=== PATIENT | male | born 1960 | race Caucasian/White ===

== ENCOUNTER → 2019-07-03 | Outpatient (CLI) | payer BC ==
--- NOTE | 2019-07-04 07:17 | CT ---
EXAMINATION TYPE: CT chest wo con DATE OF EXAM: 07/03/2019 COMPARISON: NONE HISTORY: Bronchopneumonia x6 weeks CT DLP: 569 mGycm. Automated Exposure Control for Dose Reduction was Utilized. TECHNIQUE: CT scan of the thorax is performed without IV contrast. FINDINGS: LUNGS: There is masslike consolidation involving superior aspect right middle lobe extending anterior ly inferiorly but additional area of involvement anterior-inferior aspect right upper lobe. Underlyin g mass cannot be excluded as there is not air bronchograms throughout the masslike consolidation in f act there is slightly more central irregular [id number] bronchiectasis with additional more rou nded areas of air that could reflect cyst formation or cavitation. There is extension to the pleural surface adjacent to the right anterolateral fifth rib. Left lung is clear. No pleural effusion or pne umothorax is seen bilaterally. Bilateral mild underlying emphysematous change. MEDIASTINUM: Lack of IV contrast is noted to limit evaluation for mediastinal and especially hilar ad enopathy. There are no definitive greater than 1 cm hilar or mediastinal lymph nodes. No cardiomega ly or pericardial effusion is seen. OTHER: Moderate multilevel spurring in the spine. Slight scoliotic curvature. IMPRESSION: There is involvement of the right upper and middle lobes which could reflect multilobar p neumonia however more peripheral masslike consolidation lacking air bronchograms is concerning for un derlying mass or neoplasm. Short-term follow-up imaging after treatment is advised. Consider PET/CT o r bronchoscopy if the lesion does not completely resolve.
== END | disposition home or self-care (01) ==
LOC: RADCTMAIN 16:05
PROVIDERS: ATTEND Nurse Practitioner Family
DX: J18.1 Lobar pneumonia, unspecified organism (principal)
CPT/HCPCS: 71250

== ENCOUNTER → 2019-09-24 | Outpatient (CLI) | payer BC ==
--- NOTE | 2019-09-24 13:18 | CT ---
EXAMINATION TYPE: CT chest w con DATE OF EXAM: 09/24/2019 COMPARISON: CT chest July 03, 2019. HISTORY: Follow up pneumonia diagnosed in Jun 2019 CT DLP: 435.1 mGycm. Automated Exposure Control for Dose Reduction was Utilized. TECHNIQUE: CT scan of the thorax is performed following with IV Contrast, patient injected with 100 mL of Isovue 300. FINDINGS: LUNGS: Interval near complete resolution of right anterior midlung masslike consolidation with residu al linear scarring extending towards the hilum. Slightly more thickened linear component measuring 2. 0 x 0.9 cm axial image 32 still favors resolving inflammation and/or scarring over true neoplasm. Mil d scattered areas of linear scarring and/or atelectasis. No pleural effusion or pneumothorax noted bi laterally. MEDIASTINUM: There are no greater than 1 cm hilar or mediastinal lymph nodes. No cardiomegaly or pe ricardial effusion is seen. OTHER: Moderate to severe multilevel spurring in the spine with mild to moderate multilevel disc spac e narrowing. IMPRESSION: As above, strongly favor resolving inflammation or pneumonia with residual scarring. Neop lasm felt much less likely but not entirely excluded. Advise a minimal CT reassessment in 2-3 months time or PET/CT follow-up
== END | disposition home or self-care (01) ==
LOC: RADCTMAIN 12:22
PROVIDERS: ATTEND Internal Medicine
DX: J98.4 Other disorders of lung (principal)
CPT/HCPCS: 71260; Q9967

== ENCOUNTER → 2019-10-10 | Outpatient (CLI) | payer BC ==
--- NOTE | 2019-10-13 10:41 | PE ---
EXAMINATION TYPE: PET CT fusion skull to thigh DATE OF EXAM: 10/10/2019 COMPARISON: CT chest 09/24/2019 Prior PET/CT: None HISTORY: Solitary pulmonary nodule TECHNIQUE: Following the intravenous administration of 12.89 mCi of F-18 FDG, whole body images are performed from the skull base to the midthigh. Images are reviewed on the computer in the coronal, a xial, and sagittal planes. Reconstructed rotating images are created on independent workstation and reviewed on the computer. A localization and attenuation correction CT is performed in conjunction with the PET scan. DLP: 522.37 mGycm SCAN: Initial Blood glucose: 97 mg/dL Average Mediastinum SUV: 1.14 Average Liver SUV: 1.36 FINDINGS: NECK: No abnormal uptake THORAX: There is streak opacity within the right lobe measuring 3.1 x 1.5 cm. Series 3 image 116. SUV value 0.8. There is some streak opacity within the right middle lobe on slightly more superior, imag e 106, SUV value 1.0 suspicious elevated hyperintensity is not identified. ABDOMEN: No abnormal uptake PELVIS: No abnormal uptake OSSEOUS STRUCTURES: No abnormal uptake LOCALIZATION CT and COMPARISON: There is streak opacity within the right lobe measuring 3.1 x 1.5 cm . Previous measurement 2.0 x 0.9 cm. Series 3 image 106. The consolidation within the right middle lo be was also present previously. IMPRESSION: 1. Mild radiotracer accumulation within the right middle lobe infiltrates. Findings appear more sugge stive for inflammatory change and infection than neoplasm. Follow-up with standard CT chest for clear ing
== END | disposition home or self-care (01) ==
LOC: RADPETMAIN 08:53
PROVIDERS: ATTEND Internal Medicine
DX: R91.8 Other nonspecific abnormal finding of lung field (principal)
CPT/HCPCS: 78815; A9552

== ENCOUNTER → 2020-01-21 | Outpatient (CLI) | payer BC ==
--- NOTE | 2020-01-21 16:43 | CT ---
EXAMINATION TYPE: CT chest w con DATE OF EXAM: 01/21/2020 COMPARISON: Prior CT 09/24/2019 HISTORY: Lung nodule. Follow up pneumonia. CT DLP: 435 mGycm Automated exposure control for dose reduction was used. CONTRAST: CT scan of the chest is performed with IV Contrast, patient injected with 100 mL of Isovue 300. FINDINGS: LUNGS: The lungs are is similar appearance, irregular density present extending from the right hilum and coursing peripherally in the right middle lobe has improved, the right upper lobe density shows a similar appearance. There are emphysematous changes within the lungs. There is no pleural effusion or pneumothorax seen. The tracheobronchial tree is patent. MEDIASTINUM: There are no greater than 1 cm hilar or mediastinal lymph nodes. No pericardial effusi on is seen. AORTA: No additional significant abnormality is seen. OTHER: No additional significant abnormality is seen. IMPRESSION: Suspect some slight interval improvement in aeration, follow-up suggested
== END | disposition home or self-care (01) ==
LOC: RADCTMAIN 15:48
PROVIDERS: ATTEND Internal Medicine
DX: R91.8 Other nonspecific abnormal finding of lung field (principal); Z88.1 Allergy status to other antibiotic agents; Z88.0 Allergy status to penicillin
CPT/HCPCS: 71260; Q9967

== ENCOUNTER 2020-02-12 10:52 | Day surgery (SDC) | payer BC ==
[2020-02-11 10:17] VITALS: BMI 29.8
[~2020-02-12 10:52] MED LIST: ALBUTEROL NEB (CONC) 2.5 MG/0.5 ML INHALATION ONE; LACTATED RINGERS 1,000 ML IV SCH; LIDOCAINE 2% (PF) 20 MG/ML 5 ML VIAL INHALATION ONE; LIDOCAINE VISCOUS 300 MG/15 ML CUP MUCOUS MEM ONE; SODIUM CHLORIDE 0.9% 1,000 ML IV SCH
[2020-02-12 11:31] VITALS: TEMP 97.5
[2020-02-12] MEDS ORDERED: PROPOFOL 10 MG/ML 20 ML VIAL IV ONE (12:02)
[2020-02-12] MEDS ORDERED: LIDOCAINE 2% INJ 20 MG/ML INTRATRACH ONE (12:14)
[2020-02-12 13:04] VITALS: BP 158/95; PULSE 83; RESP 16
[2020-02-12 19:36] LABS: Color,BF Colorless
[2020-02-12 19:37] LABS: Appearance,BF Hazy; Nucleated Cells, Body Fluid 259 /uL; RBC, Body Fluid 93 /uL
[2020-02-12 19:42] LABS: Mononuclear WBC,Body Fluid 27 %; Polynuclear WBC,Body Fluid 73 %; Total Cells Counted,Body Fluid 100
--- NOTE | 2020-02-12 21:29 | PCN ---
PROCEDURE NOTE OPERATIVE REPORT: Bronchoscopy, bronchoalveolar lavage of the right upper lobe, endobronchial biopsies of the right mainstem bronchus. PREOPERATIVE DIAGNOSIS: Pneumonia with post inflammatory changes in the right upper lobe, rule out endobronchial tumor. POSTOPERATIVE DIAGNOSIS: Pneumonia with post inflammatory changes in the right upper lobe, rule out endobronchial tumor. ANESTHESIA USED: IV conscious sedation. PROCEDURE DETAILS: The patient was prepared according to the bronchoscopy protocol. O2 was applied via nasal cannula, and we monitored the patient's O2 saturation continuously, blood pressure was intermittently monitored, and cardiac rhythm was continuously monitored. After adequate IV conscious sedation, the bronchoscope was inserted through the left naris after topical lidocaine applied. Then, the bronchoscope was advanced to the vocal cords, they were patent. Lidocaine applied over the vocal cords. The bronchoscope was advanced further down to the trachea. Thorough examination was done of the trachea, amor, right upper lobe, right middle lobe, right lower lobe, left upper lobe, lingula, and left lower lobe. There was no evidence of any endobronchial tumors. There was, however, narrowing of the bronchi of different segments in the right upper lobe, the right middle lobe was noted to be patent and no evidence of any endobronchial tumors in the right middle lobe, and there was no evidence of the right middle lobe syndrome. The right lower lobe was also noted to be normal. Then, considering the end of the right upper lobe bronchus at the takeoff of the anterior segment of the right upper lobe, was noted to be slightly prominent. A couple of biopsies were made, and lavage of the right upper lobe was performed. The procedure was well tolerated, there was no evidence of any immediate complications, and blood loss was extremely minimal. MMODL / IJN: [id number] /
== END 2020-02-12 13:14 | disposition home or self-care (01) ==
LOC: ORWHC2ENDO 10:52
PROVIDERS: ATTEND Internal Medicine
DX: J42 Unspecified chronic bronchitis (principal); J18.9 Pneumonia, unspecified organism; E78.5 Hyperlipidemia, unspecified; J44.9 Chronic obstructive pulmonary disease, unspecified; R53.83 Other fatigue; Z82.3 Family history of stroke; Z83.3 Family history of diabetes mellitus; Z80.0 Family history of malignant neoplasm of digestive organs; F17.210 Nicotine dependence, cigarettes, uncomplicated; Z88.1 Allergy status to other antibiotic agents; Z88.0 Allergy status to penicillin; Z79.899 Other long term (current) drug therapy
CPT/HCPCS: 88108; 88305; 89050; 87070; 87205; 87116; 87102; 87206; 31625; 31624; J2001; J2704; 87077; 87186

== ENCOUNTER → 2024-10-16 | Outpatient (CLI) | payer BC ==
--- NOTE | 2024-10-16 13:01 | CA ---
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: [id number] Technologist Procedure CPT: Indication: R06.00 DYSPNEA, UNSPECIFIED ICD-9 Codes: Rhythm: Patient History: Shortness of breath and hypertension Cardiac Medications: VALSARTAN,,,,, Medications in past 24 hours: Contrast: Definity Stress Results Protocol: Gianni Total dose(mL): 2 Exercise Duration (min:sec): 6:[address] Depression (mm): Angina Score: [place] Score: METS: 7.3 Resting HR: 68 Resting BP: 152 / 96 Peak HR: 145 Peak BP: 206 / 94 Max Predicted HR: 158 92 % Max Predicted HR Target HR: 134 Double Product: [id number] Stress Summary: BP Response: Reason for Termination: MAX EXERTION/TARGET HR Cardiac Symptoms: NO SYMPTOMS ECG Analysis Resting ECG: Stress ECG: Arrhythmia: Echo Analysis Resting Echo: Peak Echo Analysis: MEASUREMENTS (Male/Female) Normal Values CONCLUSIONS Average exercise tolerance Normal electrocardiogram in response to exercise The echocardiogram images are of poor quality and Definity was used Questionable area in the basal inferior wall concerning for hypokinesia Dr. Tay Still MD (Electronically Signed) Final Date: 16 October 2024 13:00
== END | disposition home or self-care (01) ==
LOC: RADNMMAIN 09:51
PROVIDERS: ATTEND Family Medicine
DX: R06.00 Dyspnea, unspecified (principal); I10 Essential (primary) hypertension
CPT/HCPCS: 93351; Q9957